=== PATIENT | male | born 1975 | race Two or more races ===

== ENCOUNTER 2017-08-26 10:33 | Emergency (ER) | payer OTHER ==
[~2017-08-26] VITALS: Ht 165.1 cm; Wt 74.8 kg
[2017-08-26 10:51] VITALS: BP 124/74
[2017-08-26] MEDS ORDERED: KETOROLAC TROMETH 60MG/2ML VIAL IM ONE (11:30)
== END 2017-08-26 11:35 | disposition home or self-care (01) ==
LOC: ER 10:33
DX: J20.9 Acute bronchitis, unspecified (principal); J02.9 Acute pharyngitis, unspecified
CPT/HCPCS: 71020; 96372; 99284; J1885